=== PATIENT | female | born 1995 | race Caucasian/White ===

== ENCOUNTER 2016-12-06 17:27 | Emergency (ER) | payer BC, OTHER ==
[~2016-12-06] VITALS: Ht 167.6 cm; Wt 55.3 kg
[~2016-12-06 17:27] MED LIST: ARIP15TA2 PO; ESCI20TA PO; TOPI100T11 PO
--- NOTE | 2016-12-06 17:59 | NUR ---
SEEN AND EVAL BY MURPHY FRIEND AT BEDSIDE
--- NOTE | 2016-12-06 18:02 | NUR ---
CALLED [facility] FOR TRANSPORTATION GOING TO [facility].
[2016-12-06 18:12] LABS: BASOPHILS # (AUTO) 0.1 /CMM (0.0-0.2); BASOPHILS % (AUTO) 0.8 % (0.0-2.0); EOSINOPHILS % (AUTO) 0.7 % (0.0-6.0); HEMATOCRIT 42 % (33-45); LYMPHOCYTES # (AUTO) 2.2 /CMM (0.8-4.8); LYMPHOCYTES % (AUTO) 32.9 % (20.0-44.0); MEAN CORPUSCULAR HEMOGLOBIN 33 PG (26.0-33.0); MEAN CORPUSCULAR HGB CONC 34 g/dl (31.0-36.0); MEAN CORPUSCULAR VOLUME 96 fL (82-100); MONOCYTES # (AUTO) 0.3 /CMM (0.1-1.30); MONOCYTES % (AUTO) 4.5 % (2.0-12.0); NEUTROPHILS # (AUTO) 4.1 /CMM (1.8-8.9); NEUTROPHILS % (AUTO) 61.1 % (43.0-81.0); PLATELET COUNT (AUTO) 231 /CMM (150-450); RDW COEFFICIENT OF VARIATION 12.1 (11.5-15.0); RED BLOOD CELL COUNT(AUTO) 4.32 MIL/uL (4.0-5.2); WHITE BLOOD COUNT (AUTO) 6.7 K/uL (4.3-11.0)
--- NOTE | 2016-12-06 18:19 | NUR ---
LABS DRAWN AND SENT TO LABORATORY
[2016-12-06 18:31] LABS: ALANINE AMINOTRANSFERASE 22 U/L (12-78); ALBUMIN 4.1 g/dL (3.4-5.0); ALKALINE PHOSPHATASE 89 U/L (46-116); ASPARTATE AMINOTRANSFERASE 31 U/L (15-37); BILIRUBIN,DIRECT 0.1 mg/dL (0.0-0.2); BILIRUBIN,TOTAL 0.2 mg/dL (0.2-1.0); CARBON DIOXIDE 25 mmol/L (21-32); CHLORIDE 102 mmol/L (98-107); CREATININE 0.8 mg/dL (0.6-1.3); GFR 89 mL/min (>60); GLUCOSE 96 mg/dL (74-106); SODIUM SERUM 138 mmol/L (136-145); TOTAL PROTEIN, SERUM 6.6 g/dL (6.4-8.2); UREA NITROGEN, BLOOD 9 mg/dL (7-18)
[2016-12-06 18:33] LABS: TROPONIN I < 0.017 ng/mL (0.00-0.056)
[2016-12-06 18:44] LABS: INR 1.01 (0.87-1.13); PROTHROMBIN TIME 10.5 SECS (9.5-12.7)
[2016-12-06 19:37] LABS: APPEARANCE,URINE Clear (CLEAR); BILIRUBIN,URINE Negative (NEGATIVE); BLOOD, URINE Trace-intact Ery/uL (NEGATIVE); COLOR,URINE Yellow (YELLOW); KETONES,URINE 15 (NEGATIVE); LEUKOCYTE ESTERASE ,URINE Trace (NEGATIVE); NITRITE, URINE Negative (NEGATIVE); PH,URINE 7.5 (5.0-8.0); PROTEIN,URINE Negative (NEGATIVE); UGLUCOSE Negative (NEGATIVE); UROBILINOGEN,URINE 0.2 EU/dL (0.2)
[2016-12-06 19:42] LABS: CANNABINOID, URINE NEGATIVE (NEGATIVE); PHENCYCLIDINE SCREEN,URINE NEGATIVE (NEGATIVE)
[2016-12-06 19:43] LABS: ADD URINE CULTURE NO; BACTERIA,URINE Few /HPF (None Seen); MUCUS,URINE Few /LPF (None Seen); RBC,URINE 2-3/HPF /HPF (0-2); SQUAMOUS EPITHELIAL CELL,UR Few /HPF (None Seen); URINE AMORPHOUS URATE Few /HPF (None Seen); WBC,URINE 2-4/HPF /HPF (0-3)
[2016-12-06] MEDS: IV NS 0.9% 1,000 ML BAG IV ONE (20:02)
--- NOTE | 2016-12-06 20:02 | NUR ---
PT REFUSING CT SCAN & IV MEDICATIONS, REQUESTING TO GO HOME AT THIS TIME AMA. PT INSTRUCTED ON RISK OF INJURY TO SELF, UPTO INCLUDING SHOULD PT LEAVE WITHOUT FURTHER MEDICAL ATTENTION AT THIS TIME. PT CONTINUES TO REFUSE ANY FURTHER TREATMENT AT THIS TIME, CONTINUES TO BE IN HARD C-COLLAR PRECAUTION W/ RESP EVEN & UNLABORED, NO ACUTE DISTRESS NOTED AT THIS TIME. RONNA ARRINGTON NOTIFIED OF PT STATUS.
--- NOTE | 2016-12-06 20:10 | NUR ---
Patient does not wish to proceed with medical care recommended by RONNA Sorensen. Patient given information related to possible complications, up to and including , which could occur as a result of leaving the hospital at this time. Patient verbalizes understanding of risks involved due to leaving against medical advice. Patient has signed AMA form. Hard c-collar removed by patient. IV removed. Catheter intact and site benign. Pressure and 4x4 applied to site. No bleeding noted. Patient discharged to home against medical advise. Written and verbal after care instructions given. Patient verbalizes understanding of instruction.
[2016-12-06 20:12] VITALS: BP 108/57
== END 2016-12-06 20:15 | disposition left against medical advice (07) ==
LOC: ER 17:28
DX: S09.90XA Unspecified injury of head, initial encounter (principal); R55 Syncope and collapse; F32.9 Major depressive disorder, single episode, unspecified; F17.200 Nicotine dependence, unspecified, uncomplicated; W01.198A Fall on same level from slipping, tripping and stumbling with subsequent striking against other object, initial encounter; Y93.01 Activity, walking, marching and hiking; Y92.89 Other specified places as the place of occurrence of the external cause; Y99.9 Unspecified external cause status
CPT/HCPCS: 36415; 80048; 80076; 80305; 81001; 84484; 84703; 85025; 85730; 93005; 99285; A4606; L0172; Z7610; 81000-TC